=== PATIENT | female | born 1985 | race Caucasian/White ===

== ENCOUNTER 2018-10-10 09:31 | Inpatient (IN) ==
[2018-10-10] MEDS ORDERED: Famotidine 20 MG/2 ML VIAL IVP ONE (09:59)
[2018-10-10] MEDS ORDERED: Oxytocin 20 units/ LR 1000 mL 20 UNIT/1,000 ML BAG IVC ONE (09:59)
[2018-10-10] MEDS ORDERED: CeFAZolin Syr 3,000MG/30 ML 3,000 MG/30 ML SYRINGE IVPB ONE (09:59)
[2018-10-10] MEDS ORDERED: Metoclopramide 10 MG/2 ML VIAL IVP ONE (09:59)
[2018-10-10] MEDS ORDERED: Ringers Solution, Lactated 1,000 ML IVC SCH ×2 (10:00→16:48)
[2018-10-10] MEDS ORDERED: Ringers Solution, Lactated 1,000 ML ONE ×3 (10:11→13:31)
[2018-10-10 10:35] LABS: Basophils % 0.3 %; Eosinophils % 0.2 %; Hematocrit 35.4 % (35.3-44.9); Hemoglobin 11.4 g/dL (11.5-15.4); Immature Granulocytes % 0.7 % (0-4); Lymphocytes # 1.6 K/mcL (0.6-4.6); Lymphocytes % 16.8 %; Mean Corpuscular HGB Conc 32.2 g/dL (31.6-35.5); Mean Corpuscular Hemoglobin 24.6 pg (28.0-33.3); Mean Corpuscular Volume 76.5 fL (83.0-100.0); Mean Platelet Volume 11.5 fL (9.4-12.4); Monocytes # 0.5 K/mcL (0.0-1.3); Monocytes % 5.3 %; Neutrophils # 7.5 K/mcL (1.6-8.9); Platelet Count 268 K/mcL (140-400); Red Blood Count 4.63 M/mcL (3.82-4.97); Red Cell Distribution Width 15.9 % (11.5-14.5); Segmented Neutrophils % 76.7 %
--- NOTE | 2018-10-10 10:44 | Anesthesia Evaluation PreOp ---
Date of Encounter: 10/10/18 Time of Encounter: 10:41 - Past History Planned Operation: csection Cardiac History: Denies any Significant Hx Pulmonary History: Denies Any Significant HX LAUNCH STEWARD History: Denies Any Significant HX Other Medical History: Diabetes Type II (gestational, diet controlled), Other (Patient states easy bruising) Anesthesia History: No Prior Anesthetic Complications, Past Anesthesia ([place] teeth in office, no family history of anesthetic reactions) : Yes (39 weeks, ) Alcohol Use: none Drug use: none Medications and Allergies Ferrous Sulfate 10/10/18 [History] Tablet 10/10/18 [History] Allergy/AdvReac Type Severity Reaction Status Date / Time No Known Allergies Allergy Verified 10/10/18 10:32 - Meds/Allergy Pre-op Review Medications Reviewed: Yes Allergies Reviewed: Yes Beta Blockers on Current Med List: No Anesthesia Results - Labs 10/10/18 09:55 Anesthesia Exam O2 Sat Height 1.63 m Height 1.63 m Weight 141.6 kg Weight 141.634 kg Vital Signs Temp Pulse Resp BP 98.3 F 77 18 138/73 10/10/18 10:02 10/10/18 10:02 10/10/18 10:02 10/10/18 10:02 Height: 64 Weight: 141 - HEENT Pupil (Motor): Pupils equal Mallampati: II Teeth: Normal Oral Opening: Greater than 3 - LAUNCH STEWARD LOC: Oriented LAUNCH STEWARD Motor: Normal RUE, Normal LUE, Normal RLE, Normal LLE, Normal Face LAUNCH STEWARD Sensory: Normal: RUE, LUE, RLE, LLE, Face - Cardiac Rhythm: Regular Murmur: None JVD: No Carotid Bruit: No - Pulmonary Breath Sounds: bilateral Clear Respiratory Effort: Symmetrical Anesthesia Assess/Plan ASA Score: 3 (morbid obesity, gestational diabetes) Level of consciousness: Cooperative Anesthetic Plan: General (plan b), Spinal (plan a) Monitoring Plan: Standard Monitors Recovery Plan: PACU
[2018-10-10 10:56] LABS: Amphetamine Screen,Urine Negative ng/mL (Cutoff=1000); Barbiturate Screen,Urine Negative ng/mL (Cutoff=200); Benzodiazepines Screen,Urine Negative ng/mL (Cutoff=200); Cannabinoid Screen,Urine Negative ng/mL (Cutoff = 50); Cocaine Screen,Urine Negative ng/mL (Cutoff= 300); Opiate Screen,Urine Negative ng/mL (Cutoff=300); Phencyclidine Screen,Urine Negative ng/mL (Cutoff=25)
[2018-10-10] MEDS ORDERED: MetroNIDAZOLE 500 MG/100 ML 500 MG/100 ML BAG IVPB ONE (10:56)
[2018-10-10] MEDS ORDERED: cefOXitin 3,000 MG in 0.9 % Sodium Chloride 100 ML IVPB ONE (10:56)
[2018-10-10] MEDS ORDERED: *HR* FentaNYL (PF) 100 MCG/2 ML VIAL ONE (11:50)
[2018-10-10] MEDS ORDERED: *HR* Morphine Sulfate/PF 10 MG/10 ML AMPUL ONE (11:50)
[2018-10-10] MEDS ORDERED: *HR* Oxytocin 10 UNIT/ML VIAL IM ONE ×2 (11:52→13:30)
[2018-10-10] MEDS ORDERED: Bupivacaine/PF 0.75% in Dex 2 ML AMPUL INFILT ONE (11:55)
[2018-10-10] MEDS ORDERED: Lidocaine -MPF 1% 5 ML AMPUL ONE (12:01)
[2018-10-10] MEDS ORDERED: *HR* Phenylephrine 10 MG/ML VIAL ONE (12:01)
--- NOTE | 2018-10-10 12:35 | OB/GYN History & Physical ---
Date of Encounter: 10/10/18 Time of Encounter: 12:30 Assessment and Plan (1) Term Current visit: Yes Status: Acute 39 weeks 6 days with care (2) Breech presentation of fetus Current visit: Yes Status: Acute The patient requests a primary for delivery Qualifiers: Fetus number: single or unspecified fetus Qualified Code(s): O32.1XX0 - Maternal care for breech presentation, not applicable or unspecified (3) Late care affecting in third trimester Current visit: Yes Status: Acute (4) Anemia affecting in third trimester Current visit: Yes Status: Acute (5) History of macrosomia in infant in prior , currently in third trimester Current visit: Yes Status: Acute (6) History of shoulder dystocia in prior , currently in third trimester Current visit: Yes Status: Acute for delivery (7) Adult BMI 50.0-59.9 kg/sq m Current visit: Yes Status: Acute History of Present Illness Chief complaint: c/s for Breech HPI: Ms. Carlson is a 32 year old female 012 at 39 weeks and 6 days who presents to labor and delivery for a scheduled primary section for breech presentation. Breech presentation confirmed today by bedside ultrasound with back on maternal right. The patient's has been complicated by late care, obesity with a BMI greater than 50, gestational diabetes, history of shoulder dystocia, history of preeclampsia, anemia, history of a 10 lbs. 7 oz. previous . She was able to deliver her 10 lbs. 7 oz. infant vaginally without difficulty. She had a shoulder dystocia with her smaller child that weighed 8 pounds. She has been on metformin for her gestational diabetes. She reports good blood sugar control. Has not been compliant with glucose logs in the office. Her labs include GBS negative, O+ blood type, varicella immune, rubella immune Past Med Surg Social Fam HX - Past Medical History Attestation: Yes The following information was validated with the patient. Source: patient, old records reviewed Medical history: migraine, other (Morbid obesity) Psychiatric history: no psych history - Past Surgical History Surgical History: other Additional surgical history: wisdom teeth - Social History Smoking Status: Never smoker Alcohol use: none Drug use: none Obstetrical History - Pregnancies : 4 Term: 2 Ab's: 1 Livin - History/Complications History/Complications: Shoulder dystocia and preeclampsia with in 2007 Medications and Allergies Ferrous Sulfate 10/10/18 [History] Tablet 10/10/18 [History] Allergy/AdvReac Type Severity Reaction Status Date / Time No Known Allergies Allergy Verified 10/10/18 10:32 Review of System OB All systems PM: reviewed and no additional remarkable complaints except as stated - Constitutional Constitutional ROS IM: weight gain - Muscloskeletal Musculoskeletal: arthralgias, myalgias Exam - Vital Signs Vital signs: Initial Vital Signs Temp Pulse Resp BP 98.3 F 77 18 138/73 10/10/18 10:02 10/10/18 10:02 10/10/18 10:02 10/10/18 10:02 - Constitutional Constitutional: well developed, well nourished, no acute distress, morbidly obese - HEENT HEENT: Normocephaly, Mucus Membranes Moist - Neck Neck exam: normal inspection, supple - Lungs Respiratory exam: CTAB - Cardiovascular Cardiovascular exam: RRR - Abdomen Abdomen: Present: bowel sounds normal, gravid, non tender - Extremities Extremities exam: normal inspection, warm - Vulva Vulva: bilateral: normal - Vagina Vagina: Present: normal moisture - Anus/Rectum Anus/Rectum: Present: normal perianal skin Results Result Diagrams: 10/10/18 09:55 Abnormal lab results Hgb 11.4 g/dL (11.5-15.4) L 10/10/18 09:55 MCV 76.5 fL (83.0-100.0) L 10/10/18 09:55 MCH 24.6 pg (28.0-33.3) L 10/10/18 09:55 RDW 15.9 % (11.5-14.5) H 10/10/18 09:55 All other labs normal.
[2018-10-10] MEDS ORDERED: EPHEDrine 50 MG/ML VIAL ONE (13:06)
[2018-10-10] MEDS ORDERED: *HR* HYDROmorphone (PF) 1 MG/ML SYRINGE IVP PRN (13:35)
[2018-10-10] MEDS ORDERED: Ondansetron 4 MG/2 ML VIAL IVP ONE (13:35)
--- NOTE | 2018-10-10 14:27 | OB/GYN Procedure Note ---
Section - Date of procedure: 10/10/18 Preop diagnosis: breech, other (BMI 53) Post-op diagnosis: same Procedure: section, primary low transverse Surgeon: Susan Antonio Blood Loss: 500 Was there an doctor assistant present: Yes Air Brake Operator: Shakira Jj Anesthesiologist: Merrill Zuniga Casino Surveillance Officer: Jeffrey Garcia Anesthesia Type: Spinal section complications: none Disposition: L&D Recovery Room Specimens: Placenta, Cord segment, Cord blood - Infant (s) A Delivery Date: 10/10/18 Infant Delivery Time: 13:33 Presentation: footling breech Position: unknown Route of delivery: other (c/s) Gender: Male Viability: Viable Pounds: 9 Ounces: 2 Gram Weight: 4.13 kg at 1 minute: 8 at 5 minutes: 9 Shoulder Dystocia: not encountered Specimens collected: cord blood Placenta: spontaneous, uterine exploration Cord: 3 umbilical vessels - Narrative Narrative: The patient was brought to the operating room, sign in completed, given spinal anesthesia then prepped and draped in the usual sterile fashion. A timeout was completed. A Pfannenstiel skin incision was then made and sharply dissected down to the fascia. The fascia was then incised in the midline and extended bluntly and sharply bilaterally. 2 straight William clamps are placed on the inferior fascial edge and the fascia was bluntly and sharply dissected from rectus muscles, this was repeated superiorly. The rectus muscles were bluntly and sharply bissected. Peritoneum was bluntly entered and extended bluntly superiorly and inferiorly. A bladder blade was placed to protect the bladder. The Vesicouterine peritoneum was incised with Metzenbaum scissors and extended laterally then the bladder flap was reflected inferiorly and the bladder blade was replaced to protect the bladder. A low transverse incision was then made in the lower uterine segment down to the amnion. This was then bluntly extended laterally then upward in a U fashion with bandage scissors bilaterally. The amnion was then bluntly entered, clear fluid was seen, and the infant was delivered in footling breech presentation. The infant was vigorous and suctioned on the operating field. After delayed cord clamping, the was handed to the nursery care team. A cord segment was obtained. IV Pitocin was started. The placenta was delivered spontaneous and intact. The uterine cavity was digitally inspected and noted to be clear and then was wiped clean with a moist lap sponge. Tubes and ovaries were inspected and found to be grossly normal. A ring clamp was used to dilate the cervix and then discarded off the operating field. Ring clamps were placed on the edge of the uterine incision and the uterine incision was closed using 0 Vicryl suture in a running locking fashion. A second imbricating layer completed the uterine closure. Good hemostasis was achieved. The pelvic cavity was copiously irrigated with sterile water and good hemostasis was again noted. Peritoneal edges and rectus muscles were inspected and good hemostasis was achieved. The fascia was then closed using an 0 PDS loop in a running nonlocking fashion. Subcutaneous tissue was irrigated with sterile water good hemostasis was achieved. The subcutaneous layer was closed with 0-stratafix in a running nonlocking fashion. The skin was then closed with 4-0 Monoicryl in a subcuticular fashion. Benzoin and Steri-Strips were used to reinforce the skin incision. Reardon was noted to be draining clear yellow urine at the end of the procedure. All sponge and instrument counts were correct at the end of the procedure
[2018-10-10] MEDS ORDERED: Simethicone 80 MG TAB.CHEW PO PRN (16:48)
[2018-10-10] MEDS ORDERED: Sennosides 8.6 MG TABLET PO PRN (16:48)
[2018-10-10] MEDS ORDERED: Ondansetron 4 MG/2 ML VIAL IVP PRN (16:48)
[2018-10-10] MEDS ORDERED: Metoclopramide 10 MG/2 ML VIAL IVP PRN (16:48)
[2018-10-10] MEDS ORDERED: Rho Immune Globulin 1,500 UNIT SYRINGE IM ONE (16:48)
[2018-10-10] MEDS: Oxytocin 20 units/ LR 1000 mL 20 UNIT/1,000 ML BAG IVC SCH (17:30)
[2018-10-10] MEDS: Ibuprofen 600 MG TABLET PO SCH (17:31)
[2018-10-10] MEDS: cephALEXin 500 MG CAPSULE PO SCH (21:18)
[2018-10-11] MEDS: Ibuprofen 600 MG TABLET PO SCH ×5 (00:01→22:23)
--- NOTE | 2018-10-11 00:49 | Anesthesia Evaluation Post Op ---
Date of Encounter: 10/11/18 Time of Encounter: 00:48 - Vital Signs Vital Signs: Vital Signs/O2 Sat, Most Current Temp Pulse Resp BP Pulse Ox 98 F 65 20 108/69 96 10/10/18 23:05 10/10/18 23:05 10/10/18 23:05 10/10/18 23:05 10/10/18 23:05 - Lungs Lungs: Clear Ascult./Percussion - Airway Airway: Non-obstructed - Cardiovascular Regular Rate - Mental Status Mental Status: Alert & Oriented, Answers Appropriately - Pain Pain Scale: 2 - Nausea Vomiting Nausea Vomiting: Not Present - Hydration Hydration: Tolerates oral liquids, Reardon catheter
[2018-10-11] MEDS: Oxytocin 20 units/ LR 1000 mL 20 UNIT/1,000 ML BAG IVC SCH (02:23)
[2018-10-11 07:15] LABS: Basophils % 0.3 %; Eosinophils % 0.3 %; Hematocrit 31.1 % (35.3-44.9); Hemoglobin 10.1 g/dL (11.5-15.4); Immature Granulocytes % 0.3 % (0-4); Lymphocytes # 1.2 K/mcL (0.6-4.6); Lymphocytes % 13.2 %; Mean Corpuscular HGB Conc 32.5 g/dL (31.6-35.5); Mean Corpuscular Hemoglobin 24.9 pg (28.0-33.3); Mean Corpuscular Volume 76.6 fL (83.0-100.0); Mean Platelet Volume 11.9 fL (9.4-12.4); Monocytes # 0.5 K/mcL (0.0-1.3); Monocytes % 5.1 %; Neutrophils # 7.5 K/mcL (1.6-8.9); Platelet Count 192 K/mcL (140-400); Red Blood Count 4.06 M/mcL (3.82-4.97); Segmented Neutrophils % 80.8 %
[2018-10-11] MEDS: cephALEXin 500 MG CAPSULE PO SCH ×2 (09:02→22:23)
[2018-10-11] MEDS: Azithromycin 250 MG TABLET PO SCH (09:02)
[2018-10-11] MEDS: Prenatal Vit/FA 1 EACH TABLET PO SCH (09:03)
--- NOTE | 2018-10-11 09:05 | OB/GYN Progress Note ---
Date of Encounter: 10/11/18 Time of Encounter: 09:00 - Assessment and Plan (1) Status post primary low transverse section Current Visit: Yes Status: Acute S/P primary LT day 1 for breech presentation Meeting day 1 milestones Pain is well controlled support as needed Continue routine care Anticipate discharge tomorrow (2) 39 weeks gestation of Current Visit: Yes Status: Acute Now Delivered at 39w6d (3) anemia Current Visit: Yes Status: Acute EBL from 500 mL Hgb 10.1, Hct 31.1 Ambulating without dizziness Continue ferrous sulfate (4) Gestational diabetes mellitus Current Visit: Yes Status: Acute Diet controlled gestational diabetes mellitus Will need GTT at 6 weeks Qualifiers: Gestational diabetes mellitus control: diet-controlled Trimester: third trimester Qualified Code(s): O24.410 - Gestational diabetes mellitus in , diet controlled Subjective - Subjective Principal diagnosis: Status post primary low transverse at 39w6d Interval history: Patient is a 32 y/o female, now who is status post primary LT day 1 for breech presentation. She states that her pain is well controlled, she is up and ambulating without difficulty. She has a normal appetite and is voiding well. Denies passing flatus however she has normal bowel sounds. Vaginal bleeding is scant. Normal mood and affect. male is breast and bottle feeding after having hypoglycemia. She denies nausea, vomiting, fever, chills, chest pain, shortness of breath, or calf pain. Patient reports: appetite normal, voiding normally, pain well controlled, ambulating normally : doing well, nursing well ( and supplementing with formula for mild hypoglycemia), bottle feeding Objective - Vital Signs Latest vital signs: Vital Signs Temp Pulse Resp BP Pulse Ox 10/11/18 07:46 97.9 F 67 16 108/70 97 10/11/18 03:13 98.1 F 87 20 112/74 96 10/10/18 23:05 98 F 65 20 108/69 96 10/10/18 19:30 97.7 F 60 20 105/69 96 10/10/18 18:34 97.7 F 70 18 123/70 96 10/10/18 17:23 97.6 F 75 18 111/69 97 10/10/18 17:09 97.8 F 64 20 117/67 97 10/10/18 16:30 97.8 F 59 12 125/66 96 10/10/18 10:02 98.3 F 77 18 138/73 Intake and Output 10/10/18 10/11/18 10/11/18 23:59 07:59 15:59 Intake Total 1100 / 1100 Output Total 350 / 350 700 / 700 Balance -350 / -350 400 / 400 Intake: IV Fluids 0 / 0 Pitocin 20 unit In 1,000 ml @ 0 / 0 125 mls/hr IVC .Q8H CHARLES Rx#: [id number] Oral 1100 / 1100 Output: Catheter 350 / 350 700 / 700 Other: Weight 141.1 kg Blood Glucose* 106 - Exam Lungs: bilateral: normal Chest: Normal S1, Normal S2 Extremities: Present: normal. Absent: tenderness, edema Abdomen: Present: normal appearance, soft (Normal bowel sounds) Incision: Present: normal, dry, intact, dressed Uterus: Present: normal, firm Fundal Height: 1 (1 finger above umbilicus) Comments: I examined this patient and my medical decision-making was reviewed with the Resident Physician. I agree with the documented findings, disposition and treatment plan as described except to the extent set forth below. [place] - Labs Labs: Laboratory Results - last 24 hr 10/10/18 10/10/18 10/11/18 09:55 09:55 06:13 WBC 9.7 RBC 4.63 Hgb 11.4 L Hct 35.4 MCV 76.5 L MCH 24.6 L MCHC 32.2 RDW 15.9 H Plt Count 268 MPV 11.5 Immature Gran % 0.7 Seg Neutrophils % 76.7 Lymphocytes % 16.8 Monocytes % 5.3 Eosinophils % 0.2 Basophils % 0.3 Neutrophils # 7.5 Lymphocytes # 1.6 Monocytes # 0.5 Eosinophils # 0.0 Basophils # 0.0 POC Glucose 106 H Urine Opiates Screen Negative Ur Barbiturates Screen Negative Ur Phencyclidine Scrn Negative Ur Amphetamines Screen Negative U Benzodiazepines Scrn Negative Urine Cocaine Screen Negative U Marijuana (THC) Screen Negative Ur Drug Screen Interp See Below 10/11/18 06:46 WBC 9.2 RBC 4.06 Hgb 10.1 L Hct 31.1 L MCV 76.6 L MCH 24.9 L MCHC 32.5 RDW 16.0 H Plt Count 192 MPV 11.9 Immature Gran % 0.3 Seg Neutrophils % 80.8 Lymphocytes % 13.2 Monocytes % 5.1 Eosinophils % 0.3 Basophils % 0.3 Neutrophils # 7.5 Lymphocytes # 1.2 Monocytes # 0.5 Eosinophils # 0.0 Basophils # 0.0 POC Glucose Urine Opiates Screen Ur Barbiturates Screen Ur Phencyclidine Scrn Ur Amphetamines Screen U Benzodiazepines Scrn Urine Cocaine Screen U Marijuana (THC) Screen Ur Drug Screen Interp
[2018-10-11] MEDS ORDERED: Acetaminophen 325 MG TABLET PO PRN (15:25)
[2018-10-11] MEDS: *HR* OxyCODONE/APAP 5/325 TABLET PO PRN (18:41)
[2018-10-11] MEDS ORDERED: Lanolin 7 G OINT...G. TP PRN (23:23)
[2018-10-12] MEDS: *HR* OxyCODONE/APAP 5/325 TABLET PO PRN ×2 (04:05→11:42)
[2018-10-12] MEDS: Ibuprofen 600 MG TABLET PO SCH (09:18)
[2018-10-12] MEDS: Azithromycin 250 MG TABLET PO SCH (09:19)
[2018-10-12] MEDS: Prenatal Vit/FA 1 EACH TABLET PO SCH (09:19)
[2018-10-12] MEDS: cephALEXin 500 MG CAPSULE PO SCH (09:19)
[2018-10-12 09:22] VITALS: BP 121/75
--- NOTE | 2018-10-12 09:26 | Discharge Summary ---
Date of Encounter: 10/12/18 Time of Encounter: 09:24 - Discharge Diagnosis (1) Adult BMI 50.0-59.9 kg/sq m Priority: Secondary Status: Acute Comments: Continue Zithromax and Keflex for 5 days from surgery. (2) Status post primary low transverse section Priority: Primary Status: Acute Comments: Patient meeting day 2 milestones. Voiding without difficulty, tolerating regular diet, pain well controlled Discharge home today with follow up in 2 weeks as scheduled. RX for Percocet for 7 day supply. OARRS report reviewed (3) anemia Priority: Secondary Status: Acute Comments: Discharge home with Iron daily Asymptomatic with Hgb 10.1 (4) Gestational diabetes mellitus Priority: Secondary Status: Acute Comments: Follow up in 4 weeks for 2 hour GTT Qualifiers: Gestational diabetes mellitus control: diet-controlled Trimester: third trimester Qualified Code(s): O24.410 - Gestational diabetes mellitus in , diet controlled - Discharge Medications Prescriptions: RX: Ibuprofen [Motrin] 600 mg PO Q6HR #60 tablet RX: OxyCODONE/APAP 5/325 [Percocet 5/325 MG] 1 each PO Q6HR PRN 7 Days #28 tablet PRN Reason: Moderate pain 4-6 RX: Azithromycin [Zithromax] 250 mg PO DAILY #3 tablet RX: cephALEXin [Keflex] 500 mg PO BID #6 capsule RX: Docusate [Colace] 100 mg PO BID #60 capsule RX: Ferrous Sulfate 325 mg PO DAILY@0800 #30 tablet Home Medications: Tablet 10/10/18 [History] RX: Acetaminophen [Tylenol] 650 mg PO Q6HR PRN tablet 10/12/18 [Rx] RX: Azithromycin [Zithromax] 250 mg PO DAILY #3 tablet 10/12/18 [Rx] RX: Docusate [Colace] 100 mg PO BID #60 capsule 10/12/18 [Rx] RX: Ferrous Sulfate 325 mg PO DAILY@0800 #30 tablet 10/12/18 [Rx] RX: Ibuprofen [Motrin] 600 mg PO Q6HR #60 tablet 10/12/18 [Rx] RX: Lanolin [Lansinoh] 1 appl TP TID PRN oint...g. 10/12/18 [Rx] RX: OxyCODONE/APAP 5/325 [Percocet 5/325 MG] 1 each PO Q6HR PRN 7 Days #28 tablet 10/12/18 [Rx] RX: Simethicone [Gas-X] 80 mg PO TID PRN tab.chew 10/12/18 [Rx] RX: cephALEXin [Keflex] 500 mg PO BID #6 capsule 10/12/18 [Rx] Allergies/Adverse Reactions: Allergy/AdvReac Type Severity Reaction Status Date / Time No Known Allergies Allergy Verified 10/10/18 10:32 Data Procedures and tests throughout hospitalization: Laboratory Tests 10/10/18 10/10/18 10/11/18 09:55 09:55 06:13 WBC 9.7 RBC 4.63 Hgb 11.4 L Hct 35.4 MCV 76.5 L MCH 24.6 L MCHC 32.2 RDW 15.9 H Plt Count 268 MPV 11.5 Immature Gran % 0.7 Seg Neutrophils % 76.7 Lymphocytes % 16.8 Monocytes % 5.3 Eosinophils % 0.2 Basophils % 0.3 Neutrophils # 7.5 Lymphocytes # 1.6 Monocytes # 0.5 Eosinophils # 0.0 Basophils # 0.0 POC Glucose 106 H Urine Opiates Screen Negative Ur Barbiturates Screen Negative Ur Phencyclidine Scrn Negative Ur Amphetamines Screen Negative U Benzodiazepines Scrn Negative Urine Cocaine Screen Negative U Marijuana (THC) Screen Negative Ur Drug Screen Interp See Below 10/11/18 06:46 WBC 9.2 RBC 4.06 Hgb 10.1 L Hct 31.1 L MCV 76.6 L MCH 24.9 L MCHC 32.5 RDW 16.0 H Plt Count 192 MPV 11.9 Immature Gran % 0.3 Seg Neutrophils % 80.8 Lymphocytes % 13.2 Monocytes % 5.1 Eosinophils % 0.3 Basophils % 0.3 Neutrophils # 7.5 Lymphocytes # 1.2 Monocytes # 0.5 Eosinophils # 0.0 Basophils # 0.0 POC Glucose Urine Opiates Screen Ur Barbiturates Screen Ur Phencyclidine Scrn Ur Amphetamines Screen U Benzodiazepines Scrn Urine Cocaine Screen U Marijuana (THC) Screen Ur Drug Screen Interp Date of admission: 10/10/18 09:31 Primary care physician: Lanie Chen Discharging clinician: Idania Galvan Anticipated date of discharge: 10/12/18 - Patient Status Disposition: Home, Self-Care Condition: Good Functional capacity at discharge: independent ambulation Overall status at discharge: patient is progressing back to baseline - Discharge Instructions Follow Up With: Lanie Chen CNP [Primary Care Provider] - Susan Mullen MD [Partnered Physician] - - Diet and Activity Activity: resume usual activities as tolerated Diet: regular diet Hospital Course Reason for admission: IUP at term Delivery: section (Scheduled primary for breech presentation) Episiotomy: none Laceration: none complications: none Discharge diagnosis: IUP at term delivered baby: male Hospital course: Patient doing well day two post op. She is tolerating regular diet, passing flatus, voiding without difficulty, pain is well controlled. She requests discharge home today. She is to follow up in 2 weeks for incision check and 4 weeks for routine visit along with 2 hr GTT due to GDM. - Date of procedure: 10/10/18 Preop diagnosis: breech, other (BMI 53) Post-op diagnosis: same Procedure: section, primary low transverse Surgeon: Susan Mullen Quantitated Blood Loss: 500 Was there an microbiology lab assistant present: Yes Vp Integration: Shakira Jj Anesthesiologist: Merrill Zuniga Manager Solar: Jeffrey Garcia Anesthesia Type: Spinal section complications: none Disposition: L&D Recovery Room Specimens: Placenta, Cord segment, Cord blood - (s) A Delivery Date: 10/10/18 Delivery Time: 13:33 Presentation: footling breech Position: unknown Route of delivery: other (c/s) Gender: Male Viability: Viable Pounds: 9 Ounces: 2 Gram Weight: 4.13 kg at 1 minute: 8 at 5 minutes: 9 Shoulder Dystocia: not encountered Specimens collected: cord blood Placenta: spontaneous, uterine exploration Cord: 3 umbilical vessels - Narrative Narrative: The patient was brought to the operating room, sign in completed, given spinal anesthesia then prepped and draped in the usual sterile fashion. A timeout was completed. A Pfannenstiel skin incision was then made and sharply dissected down to the fascia. The fascia was then incised in the midline and extended bluntly and sharply bilaterally. 2 straight William clamps are placed on the inferior fascial edge and the fascia was bluntly and sharply dissected from rectus muscles, this was repeated superiorly. The rectus muscles were bluntly and sharply bissected. Peritoneum was bluntly entered and extended bluntly superiorly and inferiorly. A bladder blade was placed to protect the bladder. The Vesicouterine peritoneum was incised with Metzenbaum scissors and extended laterally then the bladder flap was reflected inferiorly and the bladder blade was replaced to protect the bladder. A low transverse incision was then made in the lower uterine segment down to the amnion. This was then bluntly extended laterally then upward in a U fashion with bandage scissors bilaterally. The amnion was then bluntly entered, clear fluid was seen, and the was delivered in footling breech presentation. The was vigorous and suctioned on the operating field. After delayed cord clamping, the infant was handed to the nursery care team. A cord segment was obtained. IV Pitocin was started. The placenta was delivered spontaneous and intact. The uterine cavity was digitally inspected and noted to be clear and then was wiped clean with a moist lap sponge. Tubes and ovaries were inspected and found to be grossly normal. A ring clamp was used to dilate the cervix and then discarded off the operating field. Ring clamps were placed on the edge of the uterine incision and the uterine incision was closed using 0 Vicryl suture in a running locking fashion. A second imbricating layer completed the uterine closure. Good hemostasis was achieved. The pelvic cavity was copiously irrigated with sterile water and good hemostasis was again noted. Peritoneal edges and rectus muscles were inspected and good hemostasis was achieved. The fascia was then closed using an 0 PDS loop in a running nonlocking fashion. Subcutaneous tissue was irrigated with sterile water good hemostasis was achieved. The subcutaneous layer was closed with 0-stratafix in a running nonlocking fashion. The skin was then closed with 4-0 Monoicryl in a subcuticular fashion. Benzoin and Steri-Strips were used to reinforce the skin incision. Reardon was noted to be draining clear yellow urine at the end of the procedure. All sponge and instrument counts were correct at the end of the procedure Time Attestation: Total time spent providing and/or coordinating discharge services: Time Spent: Less than 30 minutes - VTE Documentation of Mechanical Device: Intermittent pneumatic compression device Exam - Constitutional Vitals: Temp Pulse Resp BP Pulse Ox 98.1 F 80 14 121/75 98 10/12/18 09:22 10/12/18 09:22 10/12/18 09:22 10/12/18 09:22 10/12/18 09:22 General appearance IM: A&O X 3, morbidly obese, pleasant, no acute distress, answers questions appropriately - Respiratory Respiratory exam: Present: CTAB - Cardiovascular Cardiovascular exam IM: Present: RRR, +S1, +S2 - GI/Abdominal GI/Abdominal exam IM: normal bowel sounds, soft Incision: normal, dressed (CARL) - Rectal Rectal exam: deferred - Uterine Tone: Firm Uterus Position: At Umbilicus - Extremities Exam Extremities exam IM: Present: full ROM, normal capillary refill, normal inspection, pedal edema - Neurological Exam Neurological exam: alert, normal gait, oriented X3, reflexes normal
== END 2018-10-12 12:57 | disposition home or self-care (01) | DRG 540 ==
LOC: 1NENULAB 09:31 → 1NENUOBS 15:15
PROVIDERS: ADMIT Obstetrics & Gynecology; ATTEND Obstetrics & Gynecology